=== PATIENT | female | born 1970 | race Caucasian/White ===

== ENCOUNTER 2018-05-03 20:49 | Emergency (ER) | payer OTHER ==
[2018-05-03] MEDS ORDERED: DIAZEPAM 10 MG/2 ML INJ SYRINGE ONE (21:56)
--- NOTE | 2018-05-03 22:09 | RAD REPORT ---
EXAM DESCRIPTION: CT - Head Brain Wo Cont - 05/03/2018 10:01 pm CLINICAL HISTORY: Headache COMPARISON: None. TECHNIQUE: Computed axial tomography of the head was obtained. IV contrast was not requested. All CT scans are performed using dose optimization technique as appropriate and may include automated exposure control or mA/KV adjustment according to patient size. FINDINGS: An intracranial bleed is not seen . The ventricles are normal in caliber. No extra-axial fluid collection is noted. Fluid within the sinuses/ mastoids is not seen. IMPRESSION: No acute intracranial abnormality is seen. If patient's symptoms persist MRI of the bra in would be recommended.
--- NOTE | 2018-05-03 22:19 | RAD REPORT ---
EXAM DESCRIPTION: Radha Single View05/03/2018 10:11 pm CLINICAL HISTORY: Chest pain COMPARISON: none FINDINGS: The lungs appear clear of acute infiltrate. The heart is normal size IMPRESSION: No acute abnormalities displayed
[2018-05-03 22:59] LABS: Absolute Lymphocytes (CBC) 2.9 K/uL (0.7-4.9); Absolute Monocytes 0.8 K/uL (0.1-1.3); Absolute Neutrophil 5.6 K/uL (1.8-8.0); Basophils % 0.6 % (0-1.3); Eosinophils % 1.5 % (0-4.4); Hematocrit 39.5 % (36.0-45.0); Lymphocytes % 30.6 % (15.3-44.8); MCH 32.4 pg (27.0-35.0); MCV 95.4 fL (80-100); MPV 8.5 fL (7.6-11.3); Monocytes % 8.7 % (3.3-12.3); RBC Red Blood Cell Count 4.14 M/uL (3.86-4.86)
[2018-05-03 23:04] LABS: Protime INR 0.92
[2018-05-03 23:50] LABS: Albumin 3.4 g/dL (3.4-5.0); Bilirubin Direct 0.1 mg/dL (0-0.2); Bilirubin Total 0.5 mg/dL (0.2-1.0); Potassium 4.7 mmol/L (3.5-5.1); Protein, Total 6.8 g/dL (6.4-8.2)
--- NOTE | 2018-05-04 00:34 | EDPHYS ---
Physician Documentation [facility] Name: Rebeca Paul Age: 47 yrs Sex: Female : 1970 Arrival Date: 05/03/2018 Time: 20:50 Bed 13 Private MD: ED Physician Mekhi Leroy HPI: 05/04 00:34 This 47 yrs old Female presents to ER via Wheelchair with complaints of gs Headache, Weakness. 00:34 The patient describes the headache as throbbing. Onset: The symptoms/episode gs began/occurred suddenly, 2 week(s) ago, says started after botox injection. Associated signs and symptoms: Pertinent positives: double vision, visual field changes, weakness. Severity of symptoms: At its worst the pain was severe, in the emergency department the pain is unchanged. Headache History: The patient has had previous headaches and this one is more severe than previous episodes. The symptoms are alleviated by nothing. the symptoms are aggravated by nothing. The patient has not experienced similar symptoms in the past. 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 - Social history:: Smoking status: Patient/guardian denies using tobacco. - Ebola Screening: : Patient denies travel to an Ebola-affected area in the 21 days before illness onset. ROS: 05/04 00:34 Cardiovascular: Positive for chest pain. gs Respiratory: Positive for shortness of breath. All other systems are negative. Exam: 00:34 Head/Face: Normocephalic, atraumatic. Eyes: Pupils equal round and reactive to light, gs extra-ocular motions intact. Lids and lashes normal. Conjunctiva and sclera are non-icteric and not injected. Cornea within normal limits. Periorbital areas with no swelling, redness, or edema. ENT: Nares patent. No nasal discharge, no septal abnormalities noted. Tympanic membranes are normal and external auditory canals are clear. Oropharynx with no redness, swelling, or masses, exudates, or evidence of obstruction, uvula midline. Mucous membranes moist. Neck: Trachea midline, no thyromegaly or masses palpated, and no cervical lymphadenopathy. Supple, full range of motion without nuchal rigidity, or vertebral point tenderness. No Meningismus. Chest/axilla: Normal chest wall appearance and motion. Nontender with no deformity. No lesions are appreciated. Cardiovascular: Regular rate and rhythm with a normal S1 and S2. No gallops, murmurs, or rubs. Normal PMI, no JVD. No pulse deficits. 00:34 Respiratory: Lungs have equal breath sounds bilaterally, clear to auscultation and percussion. No rales, rhonchi or wheezes noted. No increased work of breathing, no retractions or nasal flaring. Abdomen/GI: Soft, non-tender, with normal bowel sounds. No distension or tympany. No guarding or rebound. No evidence of tenderness throughout. Skin: Warm, dry with normal turgor. Normal color with no rashes, no lesions, and no evidence of cellulitis. MS/ Extremity: Pulses equal, no cyanosis. Neurovascular intact. Full, normal range of motion. 00:34 Constitutional: The patient appears alert, awake. 00:34 ECG was reviewed by the Attending Physician. 00:34 Neuro: Orientation: is normal, Mentation: is normal, Memory: is normal, Cranial nerves: grossly normal, Nystagmus is absent. Cerebellar function: dysmetria is noted on both sides, Motor: moves all fours, strength is normal, Sensation: is normal. 00:34 Eyes: says double vision when both eyes open and when covering left eye. gs Vital Signs: 05/03 21:11 BP 145 / 103; Pulse 85; Resp 18; Temp 97.4; Pulse Ox 99% on R/A; Weight 63.5 kg (R); aj1 Height 5 ft. 0 in. (152.40 cm); Pain 9/10; 22:50 BP 151 / 99; Pulse 83; Resp 16; Pulse Ox 100% on R/A; ao 05/04 00:09 BP 126 / 83; Pulse 71; Resp 16; Pulse Ox 97% on R/A; ao 05/03 21:11 Body Mass Index 27.34 (63.50 kg, 152.40 cm) aj1 [place] Coma Score: 00:34 Eye Response: spontaneous(4). Verbal Response: oriented(5). Motor Response: obeys commands(6). Total: 15. MDM: 05/03 21:40 Patient medically screened. 05/04 00:34 Differential diagnosis: cerebral vascular accident, neoplasm, subarachnoid bleed, gs vasomotor headache. Data reviewed: vital signs, nurses notes. 00:34 Counseling: I had a detailed discussion with the patient and/or guardian regarding: the historical points, exam findings, and any diagnostic results supporting the discharge/admit diagnosis, the need to transfer to another facility, for higher level of care. 05/03 21:42 Order name: Basic Metabolic Panel; Complete Time: 23:52 05/03 21:42 Order name: CBC with Diff; Complete Time: 23:52 05/03 21:42 Order name: CPK; Complete Time: 23:52 05/03 21:42 Order name: LFT's; Complete Time: 23:52 05/03 21:42 Order name: Magnesium; Complete Time: 23:52 05/03 21:42 Order name: PT-INR; Complete Time: 23:52 05/03 21:42 Order name: Troponin (emerg Dept Use Only); Complete Time: 22:36 05/03 21:42 Order name: XRAY Chest (1 view); Complete Time: 22:24 05/03 21:42 Order name: D-Dimer; Complete Time: 23:52 05/03 21:42 Order name: CT Head Brain wo Cont; Complete Time: 22:24 05/04 00:25 Order name: Osmolality, Serum 05/03 21:42 Order name: EKG; Complete Time: 21:42 05/03 21:42 Order name: Cardiac monitoring; Complete Time: 23:06 05/03 21:42 Order name: EKG - Nurse/Tech; Complete Time: 23:06 05/03 21:42 Order name: IV Saline Lock; Complete Time: 21:57 05/03 21:42 Order name: Labs collected and sent; Complete Time: 21:57 05/03 21:42 Order name: O2 Per Protocol; Complete Time: 21:57 05/03 21:42 Order name: O2 Sat Monitoring; Complete Time: 21:57 gs EC:34 Rate is 76 beats/min. Rhythm is regular. MI interval is normal. QRS interval is normal. gs T waves are Normal. No ST changes noted. Clinical impression: Normal ECG. Interpreted by me. Administered Medications: 05/03 21:55 Drug: Valium 2.5 mg Route: IVP; Site: right forearm; ao 05/04 01:42 Follow up: Response: No adverse reaction ao 05/03 23:03 Drug: Reglan 5 mg Route: IVP; Site: left antecubital; ao 05/04 01:42 Follow up: Response: No adverse reaction ao 05/03 23:05 Drug: TORadol 30 mg Route: IVP; Site: left antecubital; ao 05/04 01:41 Follow up: Response: No adverse reaction ao 05/03 23:06 Drug: Benadryl 12.5 mg Route: IVP; Site: left antecubital; ao 05/04 01:41 Follow up: Response: No adverse reaction ao 01:00 Drug: NS 0.45 % 1000 ml Route: IV; Rate: 125 ml/hr; Site: left antecubital; ao 01:41 Follow up: IV Status: Changed to by EMS; IV Intake: 100ml ao Disposition: 05/04/18 00:34 Transfer ordered to [facility]. Diagnosis is Hyperosmolality and hypernatremia. - Reason for transfer: Higher level of care. - Accepting physician is markie morales. - Condition is Stable. - Problem is new. - Symptoms have improved. Critical care time excluding procedures: 00:34 Critical care time: Bedside Care: 10 minutes, Consultation: 10 minutes, Family gs Intervention: 10 minutes. Total time: 30 minutes Signatures: Dispatcher [employer] EDCO Sylvia Licona RN RN aj1 Indio Kumar RN RN ao Starr, Gregory, MD MD Corrections: (The following items were deleted from the chart) 01:42 05/03 21:42 Urine Dipstick-Ancillary ordered. ao 05/04 01:45 00:34 05/04/2018 00:34 Transfer ordered to [facility]. Diagnosis is ao Hyperosmolality and hypernatremia. Reason for transfer: Higher level of care. Accepting physician is markie morales. Condition is Stable. Problem is new. Symptoms have improved. gs
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
[2018-05-04] MEDS ORDERED: NACHLORIDE 0.45% 1,000 ML IV ONE (01:14)
--- NOTE | 2018-05-04 06:29 | EKG ---
Test Date: 2018-05-03 Test Time: 22:33:08 College Director: NORMAN MEASUREMENT RESULTS: Intervals: Rate: 76 HI: 146 QRSD: 70 QT: 362 QTc: 407 [place]: P: 57 HI: 146 QRS: 16 T: 28 INTERPRETIVE STATEMENTS: Normal sinus rhythm Normal ECG No previous ECG available for comparison Electronically Signed On 05-04-18 06:29:06 CDT by Rojelio Varma
== END 2018-05-04 01:45 | disposition short-term general hospital (02) ==
LOC: ER 20:49
DX: E87.0 Hyperosmolality and hypernatremia (principal); Z98.82 Breast implant status
CPT/HCPCS: 36415; 70450; 71045; 80048; 80076; 82550; 83735; 83930; 84484; 85025; 85379; 85610; 93005; 99285; J3360